=== PATIENT | female | born 1990 | race Caucasian/White ===

== ENCOUNTER 2016-06-27 14:44 | Emergency (ER) | payer OTHER ==
[~2016-06-27] VITALS: Ht 165.1 cm; Wt 74.8 kg
[2016-06-27 14:53] VITALS: BP 118/75; PULSE 76; RESP 20; TEMP 98.4; O2SAT 99
--- NOTE | 2016-06-27 14:57 | NUR ---
Pt placed to ER waiting room in stable condition. Urine cup provided.
--- NOTE | 2016-06-27 16:04 | NUR ---
Patient to ER [facility] for evaluation. Report given to Shannan
[2016-06-27 16:12] LABS: BASOPHILS # (AUTO) 0.1 K/uL (0.0-0.2); BASOPHILS % (AUTO) 0.5 % (0.0-2.0); EOSINOPHILS # (AUTO) 0.1 K/uL (0.0-0.4); EOSINOPHILS % (AUTO) 0.5 % (0.0-4.0); HEMATOCRIT 38.1 % (36-48); HEMOGLOBIN 13.2 g/dL (12.0-16.0); LYMPHOCYTES # (AUTO) 2.1 K/uL (1.0-5.5); LYMPHOCYTES % (AUTO) 19.1 % (20.5-51.5); MEAN CORPUSCULAR HEMOGLOBIN 32 pg (27-31); MEAN CORPUSCULAR HGB CONC 35 % (32-36); MEAN CORPUSCULAR VOLUME 93 fL (79.0-98.0); MONOCYTES # (AUTO) 0.4 K/uL (0.0-1.0); MONOCYTES % (AUTO) 3.7 % (1.7-9.3); NEUTROPHILS # (AUTO) 8.2 K/uL (1.8-7.7); NEUTROPHILS % (AUTO) 76.2 % (40.0-70.0); PLATELET COUNT (AUTO) 222 K/uL (130-430); RED BLOOD CELL COUNT(AUTO) 4.09 MIL/uL (4.2-6.2); RED CELL DISTRIBUTION WIDTH 12.4 % (9.0-15.0); WHITE BLOOD COUNT (AUTO) 10.9 K/uL (4.8-10.8)
--- NOTE | 2016-06-27 16:22 | NUR ---
Per Dr. Dempsey placed pt on bed 8
--- NOTE | 2016-06-27 16:40 | NUR ---
Pt brought by self, A&Ox4, pt states she is , unsure of how many weeks, possible 2, pt c/o mild vaginal spotting ,skin pink and warm, cap refill <3,VSS.
--- NOTE | 2016-06-27 16:58 | NUR ---
Pelvic exam performed by Dr Dempsey with Shannan Rogers RN at bedside for entire examination. Patient tolerated procedure . Patient assisted to position of comfort after examination.
[2016-06-27 17:28] LABS: BILIRUBIN,URINE NEGATIVE (NEGATIVE); CLARITY/URINE SL HAZY (CLEAR); COLOR,URINE YELLOW (YELLOW); GLUCOSE,URINE NEGATIVE (NEGATIVE); KETONES,URINE 2+ (NEGATIVE); LEUKOCYTE ESTERASE ,URINE NEGATIVE (NEGATIVE); NITRITE, URINE NEGATIVE (NEGATIVE); PROTEIN URINE NEGATIVE (NEGATIVE); UROBILINOGEN,URINE 0.2 (0.2-1.0)
[2016-06-27 17:42] LABS: CALCIUM 9.1 mg/dL (8.4-11.0); CREATININE 0.68 mg/dL (0.55-1.30); POTASSIUM 3.5 mmol/L (3.5-5.1)
[2016-06-27 17:44] LABS: BLOOD, URINE TRACE (NEGATIVE)
[2016-06-27 17:55] LABS: BACTERIA,URINE FEW /HPF (None Seen); WBC,URINE 0-3 /HPF (0-3)
[2016-06-27 17:56] LABS: MUCUS,URINE 3+ /LPF (None Seen)
--- NOTE | 2016-06-27 18:50 | NUR ---
Pt off the unit for ultrasound
[2016-06-27 19:27] VITALS: BP 118/75; PULSE 76; RESP 20; TEMP 98.4; O2SAT 99
--- NOTE | 2016-06-27 19:28 | NUR ---
Patient given written and verbal discharge instructions and verbalizes understanding. ER MD discussed with patient the results and treatment provided. Patient in stable condition. ID arm band removed. Rx of given. Patient educated on pain management and to follow up with PMD. Pain Scale 0/10. Opportunity for questions provided and answered.
== END 2016-06-27 19:28 | disposition home or self-care (01) ==
LOC: SED 14:44
DX: O20.0 Threatened abortion (principal); Z3A.01 Less than 8 weeks gestation of pregnancy
CPT/HCPCS: 36415; 76801; 80048; 81000-TC; 81025; 84702-TC; 85025; 86886; 86900; 86901; 99285